=== PATIENT | female | born 1975 | race Caucasian/White ===

== ENCOUNTER → 2020-09-22 10:18 | Outpatient (CLI) | payer OTHER, SELFPAY ==
--- NOTE | ~2020-09-22 | MM_ITS ---
EXAMINATION: MM screening omar BI w padma HISTORY: Screening mammogram TECHNIQUE: Craniocaudal and mediolateral oblique 3-D tomosynthesis images were obtained and synthetic 2-D images were generated. CAD analysis was submitted and interpreted. COMPARISON: 05/30/2019 bilateral digital screening mammogram 10/02/2017 diagnostic right digital mammogram 09/15/2017 bilateral digital screening mammogram BREAST PARENCHYMAL COMPOSITION: There are scattered areas of fibroglandular density. FINDINGS: There is no evidence of suspicious mass, calcification, or architectural distortion to sugg est malignancy in either breast. There has been no suspicious interval change. IMPRESSION: 1. No mammographic evidence of malignancy. 2. Recommend routine screening mammography in one year. BI-RADS Category 1: Negative Reviewed, dictated and finalized at location A. 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
== END ==
PROVIDERS: Visit Provider Obstetrics & Gynecology
DX: Z12.31 Encounter for screening mammogram for malignant neoplasm of breast (principal)
CPT/HCPCS: 77063; 77067

== ENCOUNTER 2021-06-28 13:27 | Outpatient (CLI) | payer OTHER, SELFPAY ==
--- NOTE | ~2021-06-28 | XR_ITS ---
EXAMINATION: XR chest 2V DATE: 06/28/2021 13:48 INDICATION: Chest pain, unspecified. TECHNIQUE: Frontal and lateral views of the chest were obtained. COMPARISON: CT abdomen and pelvis 02/12/2014 FINDINGS: The chest demonstrates clear lungs without pneumonia, pleural effusion, or pneumothorax. Th e heart size is normal. IMPRESSION: 1. No acute cardiopulmonary disease. Reviewed, dictated and finalized at location A. 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
--- NOTE | 2021-06-28 13:47 | ECG_ITS ---
Measurements Intervals [place] Rate: 72 P: 47 CT: 144 QRS: 57 QRSD: 92 T: 11 QT: 390 QTc: 429 Interpretive Statements SINUS RHYTHM WITH SINUS ARRHYTHMIA INCOMPLETE RIGHT BUNDLE BRANCH BLOCK BORDERLINE ECG Electronically Signed On 06-28-2021 14:10:40 SOLE LEVELER MACHINE by Sarwat Lopez D.O.
== END 2021-06-28 13:28 | disposition home or self-care (01) ==
PROVIDERS: PCP Family Medicine; Visit Provider Nurse Practitioner Family
DX: R07.9 Chest pain, unspecified (principal)
CPT/HCPCS: 71046; 93005

== ENCOUNTER 2021-06-29 08:50 | Outpatient (CLI) | payer OTHER, SELFPAY ==
[2021-06-29 09:14] LABS: Hematocrit 40.3 % (37.0-47.0); Hemoglobin 13.2 g/dL (12.0-15.0); Mean Corpuscular HGB Conc 32.8 g/dl (32-36); Mean Corpuscular Volume 91.6 fl (80-100); Mean Platelet Volume 9.7 fl (7.4-10.4); Platelet Count Result 237 k/mm3 (150-375); Red Cell Distribution Width 12.1 % (11.5-14.5); White Blood Count 5.2 K/mm3 (4.5-10.0)
[2021-06-29 09:28] LABS: Anion Gap 4 mmol/L (8-16); Blood Urea Nitrogen 12 mg/dL (7-17); Calcium 8.9 mg/dL (8.4-10.2); Carbon Dioxide 29 mmol/L (22-30); Chloride 107 mmol/L (98-107); Cholesterol 170 mg/dL (0-200); Estimated Glomerular Filt Rate > 60; Glucose 96 mg/dL (65-110); HDL Direct 54 mg/dL; Potassium 4.3 mmol/L (3.4-5.0); Sodium 140 mmol/L (137-145); Triglycerides 89 mg/dL (<150)
[2021-06-29 09:39] LABS: LDL Cholesterol Direct 74 mg/dL
[2021-06-29 09:59] LABS: Thyroid Stimulating Hormone 0.842 uIU/mL (0.465-4.680)
== END 2021-06-29 08:51 | disposition home or self-care (01) ==
PROVIDERS: PCP Family Medicine; Visit Provider Family Medicine
DX: R07.89 Other chest pain (principal); Z13.220 Encounter for screening for lipoid disorders; Z13.1 Encounter for screening for diabetes mellitus; R53.83 Other fatigue; Z13.29 Encounter for screening for other suspected endocrine disorder
CPT/HCPCS: 36415; 80048; 80061; 84443; 85027

== ENCOUNTER 2021-07-24 08:33 | Outpatient (CLI) | payer OTHER, SELFPAY ==
--- NOTE | 2021-07-24 08:55 | ECHO_ITS ---
Patient Info Name: Rosenda Bhat Age: 45 years : 1975 Gender: Female Ht: 64 in Wt: 180 lbs BSA: 1.95 m2 HR: 70 bpm BP: 118 / 87 mmHg Technical Quality: Good Exam Date: 07/24/2021 9:00 AM Exam Location: [facility] Patient Status: Outpatient Admit Date: 07/24/2021 Staff Ordering Physician: Shaan Perez NP Gamma Facilities Operator: Enma Denney RDCS Attending Provider: Shaan Perez NP Referring Physician: Chris FERRERA; Exam Type: CA echo doppler color flow Study Info Indications R94.31 - Abnormal electrocardiogram ECG EKG Complete two-dimensional, color flow and Doppler transthoracic echocardiogram is performed. Summary 1. Complete two-dimensional, color flow and Doppler transthoracic echocardiogram is performed. 2. Left ventricular chamber dimension is normal. 3. Left ventricular systolic function is normal, estimated at 60-65%. 4. The left ventricular diastolic function is normal. 5. E/e' 7 is not elevated. 6. Global longitudinal strain is normal at -18.1%. 7. There is trace mitral valve regurgitation. 8. No pulmonary hypertension, estimated pulmonary arterial systolic pressure is 28 mmHg. Left Ventricle E/e' 7 is not elevated. Global longitudinal strain is normal at -18.1%. Left ventricular chamber dimension is normal. Left ventricular systolic function is normal, estimated at 60-65%. The left ventricular diastolic function is normal. Right Ventricle Right ventricular chamber dimension is normal. Right ventricular systolic function is normal. Left Atria Left atrial chamber dimension is normal. Right Atria Right atrial chamber dimension is normal. Aortic Valve The aortic valve is trileaflet. There is no aortic valve stenosis. There is no aortic valve regurgitation. Pulmonic Valve There is no pulmonic regurgitation. Mitral Valve There is no mitral valve stenosis. There is trace mitral valve regurgitation. Tricuspid Valve There is no tricuspid valve regurgitation. No pulmonary hypertension, estimated pulmonary arterial systolic pressure is 28 mmHg. Pericardium/Pleural There is no pericardial effusion. Inferior Vena Cava Normal inferior vena cava with >50% collapse upon inspiration consistent with normal right atrial pressure, 5 mmHg. Aorta The aortic root size at the sinus of Valsalva is normal. Left Ventricular Outflow Tract Name Value Normal LVOT 2D LVOT Diameter 1.9 cm Pulmonic Valve Name Value Normal RVOT Doppler RVOT Peak Gradient 3 mmHg PV Doppler PV Peak Gradient 5 mmHg Mitral Valve Name Value Normal MV Doppler
== END 2021-07-24 08:34 | disposition home or self-care (01) ==
PROVIDERS: PCP Family Medicine; Visit Provider Nurse Practitioner Family
DX: R94.31 Abnormal electrocardiogram [ECG] [EKG] (principal); R07.89 Other chest pain
CPT/HCPCS: 93306

== ENCOUNTER → 2022-01-03 12:10 | Outpatient (CLI) | payer OTHER, SELFPAY ==
--- NOTE | ~2022-01-03 | MM_ITS ---
EXAMINATION: MM screening omar BI w padma HISTORY: Screening mammogram TECHNIQUE: Craniocaudal and mediolateral oblique 3-D tomosynthesis images were obtained and synthetic 2-D images were generated. CAD analysis was submitted and interpreted. COMPARISON: September 22, 2020, May 24, 2019 bilateral screening mammogram examinations BREAST PARENCHYMAL COMPOSITION: There are scattered areas of fibroglandular density. FINDINGS: There is no evidence of suspicious mass, calcification, or architectural distortion to sugg est malignancy in either breast. There has been no suspicious interval change. IMPRESSION: 1. No mammographic evidence of malignancy. 2. Recommend routine screening mammography in one year. BI-RADS Category 1: Negative Reviewed, dictated and finalized at location A.
== END ==
PROVIDERS: PCP Family Medicine; Visit Provider Obstetrics & Gynecology
DX: Z12.31 Encounter for screening mammogram for malignant neoplasm of breast (principal)
CPT/HCPCS: 77063; 77067

== ENCOUNTER → 2023-01-09 10:16 | Outpatient (CLI) | payer OTHER, SELFPAY ==
--- NOTE | ~2023-01-09 | MM_ITS ---
EXAMINATION: MM screening omar BI w padma HISTORY: Screening mammogram TECHNIQUE: Craniocaudal and mediolateral oblique 3-D tomosynthesis images were obtained and synthetic 2-D images were generated. CAD analysis was submitted and interpreted. COMPARISON: 01/03/2022, 09/22/2020, 05/30/2019 bilateral screening mammogram examinations BREAST PARENCHYMAL COMPOSITION: There are scattered areas of fibroglandular density. FINDINGS: There is no evidence of suspicious mass, calcification, or architectural distortion to sugg est malignancy in either breast. There has been no suspicious interval change. IMPRESSION: 1. No mammographic evidence of malignancy. 2. Recommend routine screening mammography in one year. BI-RADS Category 1: Negative Reviewed, dictated and finalized at location A.
== END ==
PROVIDERS: PCP Family Medicine; Visit Provider Obstetrics & Gynecology
DX: Z12.31 Encounter for screening mammogram for malignant neoplasm of breast (principal)
CPT/HCPCS: 77063; 77067

== ENCOUNTER 2024-06-11 09:55 | Outpatient (CLI) | payer OTHER, SELFPAY ==
--- NOTE | ~2024-06-11 | MM_ITS ---
EXAMINATION: MM screening [facility] BI w padma HISTORY: Screening mammogram TECHNIQUE: Craniocaudal and mediolateral oblique 3-D tomosynthesis images were obtained and synthetic 2-D images were generated. CAD analysis was submitted and interpreted. COMPARISON: 01/09/2023, 01/03/2022, 09/22/2020, 06/03/2019 BREAST PARENCHYMAL COMPOSITION:Not Dense. There are scattered areas of fibroglandular density. FINDINGS: No suspicious mass, calcification, or architectural distortion are identified in either zuleika ast to suggest malignancy. There has been no suspicious interval change. IMPRESSION: No mammographic evidence of malignancy. Recommend routine screening mammography in one year. BI-RADS Category 1: Negative Reviewed, dictated and finalized at location .
== END 2024-06-11 09:56 | disposition home or self-care (01) ==
LOC: MICIMG 09:56
PROVIDERS: PCP Obstetrics & Gynecology; Visit Provider Obstetrics & Gynecology
DX: Z12.31 Encounter for screening mammogram for malignant neoplasm of breast (principal)
CPT/HCPCS: 77063; 77067

== ENCOUNTER 2025-04-22 07:26 | Outpatient (CLI) | payer OTHER, SELFPAY ==
[2025-04-22 08:04] LABS: Hematocrit 41.0 % (37.0-47.0); Hemoglobin 13.1 g/dL (12.0-15.0); Immature Granulocyte Percent A 0.4 % (0-0.5); Lymphocytes Absolute Auto 1.99 K/mm3 (0.9-3.2); Mean Corpuscular HGB Conc 32.0 g/dl (32-36); Mean Corpuscular Hemoglobin 29.1 pg (26-34); Mean Corpuscular Volume 91.1 fl (80-100); Nucleated Red Blood Cells Absolute Auto 0.000 K/mm3 (0.0-0.012); Nucleated Red Blood Cells Perc 0.0 % (0.0-0.2); Platelet Count Result 276 k/mm3 (150-375); Red Blood Count 4.50 M/mm3 (4.2-5.4); White Blood Count 5.4 K/mm3 (4.5-10.0)
[2025-04-22 08:25] LABS: Alanine Aminotransferase 13 U/L (6-35); Albumin Level 4.3 g/dL (3.5-5.1); Alkaline Phosphatase 62 U/L (38-126); Anion Gap 8 mmol/L (4-12); Aspartate Amino Transferase 26 U/L (14-36); Bilirubin,Total 0.7 mg/dL (0.2-1.3); Blood Urea Nitrogen 13 mg/dL (7-17); Calcium 8.7 mg/dL (8.4-10.2); Carbon Dioxide 24 mmol/L (22-30); Chloride 106 mmol/L (98-107); Cholesterol 194 mg/dL (0-200); Estimated Glomerular Filt Rate > 60; Glucose 99 mg/dL (65-110); HDL Direct 63 mg/dL; Potassium 3.8 mmol/L (3.4-5.0); Sodium 138 mmol/L (137-145); Total Protein 7.4 g/dL (6.3-8.2); Triglycerides 90 mg/dL (<150)
[2025-04-22 09:00] LABS: Thyroid Stimulating Hormone 1.980 uIU/mL (0.465-4.680)
[2025-04-22 09:15] LABS: Iron 92 ug/dL (37-170)
[2025-04-22 09:25] LABS: Percent Iron Saturation 28 % (20-50)
[2025-04-22 09:36] LABS: Vitamin B12 689.0 pg/mL (239-931)
== END 2025-04-22 07:27 | disposition home or self-care (01) ==
LOC: ANHLAB 07:28
PROVIDERS: PCP Family Medicine; Visit Provider Nurse Practitioner Family
DX: Z13.1 Encounter for screening for diabetes mellitus (principal); Z13.29 Encounter for screening for other suspected endocrine disorder; Z13.220 Encounter for screening for lipoid disorders; E55.9 Vitamin D deficiency, unspecified
CPT/HCPCS: 36415; 80053; 80061; 82306; 82607; 82746; 83540; 83550; 84443; 85025

== ENCOUNTER 2025-06-16 10:30 | Outpatient (CLI) | payer OTHER, SELFPAY ==
--- NOTE | ~2025-06-16 | MM_ITS ---
EXAMINATION: MM screening omar BI w padma HISTORY: Screening TECHNIQUE: Craniocaudal and mediolateral oblique 3-D tomosynthesis images were obtained and synthetic 2-D images were generated. CAD analysis was submitted and interpreted. COMPARISON: Comparison to multiple prior studies sequentially, with oldest reviewed study dated , 06/03/2019 BREAST PARENCHYMAL COMPOSITION: There are scattered areas of fibroglandular density. FINDINGS: There is no evidence of suspicious mass, calcification, or architectural distortion to suggest malignancy in either breast. IMPRESSION: 1. No mammographic evidence of malignancy. 2. Recommend routine screening mammography in one year. BI-RADS Category 1: Negative Reviewed, dictated and finalized at location B. 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
== END 2025-06-16 10:31 | disposition home or self-care (01) ==
LOC: MICIMG 10:31
PROVIDERS: PCP Family Medicine; Visit Provider Obstetrics & Gynecology
DX: Z12.31 Encounter for screening mammogram for malignant neoplasm of breast (principal)
CPT/HCPCS: 77063; 77067

== ENCOUNTER 2025-06-17 10:35 | Outpatient (CLI) | payer OTHER, SELFPAY ==
--- NOTE | 2025-06-17 10:43 | EST_ITS ---
Patient Info Name: Rosenda Bhat Age: 49 years : 1975 Gender: Female Ht: 64 in Wt: 170 lbs BSA: 1.89 m2 HR: 65 bpm BP: 119 / 71 mmHg Exam Date: 06/17/2025 10:43 AM Patient Status: O Admit Date: 06/17/2025 Exam Type: CA stress test treadmill A treadmill exercise stress test was performed. Staff Referring Physician: Sarwat Lopez DO Attending Provider: Sarwat Lopez DO Exercise Technologist: Renee Malone Exercise Physician: Sarwat Lopez DO Summary 1. 1. Negative Kaleb exercise stress test for ischemic ST changes by ECG criteria. 2. 2. Good functional capacity, achieving 10 METs of workload. 3. 3. Appropriate HR response to exercise. 4. 4. Appropriate HR recovery at 1 minute post exercise. 5. 5. No imaging with stress testing. 6. 6. Patient informed of the above results. Protocol: Kaleb Stress ECG Details Stage: REST Duration (min): 0 min : 59 sec Speed (mph): 0.0 Grade (%): 0 HR (bpm): 66 SBP (mmHg): 119 DBP (mmHg): 71 METS: --- Stage: REST Duration (min): 3 min : 53 sec Speed (mph): 0.0 Grade (%): 0 HR (bpm): 93 SBP (mmHg): 119 DBP (mmHg): 71 METS: --- Stage: STAGE 1 Duration (min): 1 min : 0 sec Speed (mph): 1.7 Grade (%): 10 HR (bpm): 100 SBP (mmHg): 119 DBP (mmHg): 71 METS: --- Stage: STAGE 1 Duration (min): 2 min : 0 sec Speed (mph): 1.7 Grade (%): 10 HR (bpm): 100 SBP (mmHg): 119 DBP (mmHg): 71 METS: --- Stage: STAGE 1 Duration (min): 3 min : 0 sec Speed (mph): 1.7 Grade (%): 10 HR (bpm): 107 SBP (mmHg): 152 DBP (mmHg): 83 METS: --- Stage: STAGE 2 Duration (min): 1 min : 0 sec Speed (mph): 2.5 Grade (%): 12 HR (bpm): 112 SBP (mmHg): 152 DBP (mmHg): 83 METS: --- Stage: STAGE 2 Duration (min): 2 min : 0 sec Speed (mph): 2.5 Grade (%): 12 HR (bpm): 122 SBP (mmHg): 152 DBP (mmHg): 76 METS: --- Stage: STAGE 2 Duration (min): 3 min : 0 sec Speed (mph): 2.5 Grade (%): 12 HR (bpm): 129 SBP (mmHg): 152 DBP (mmHg): 76 METS: --- Stage: STAGE 3 Duration (min): 1 min : 0 sec Speed (mph): 3.4 Grade (%): 14 HR (bpm): 137 SBP (mmHg): 187 DBP (mmHg): 76 METS: --- Stage: STAGE 3 Duration (min): 2 min : 0 sec Speed (mph): 3.4 Grade (%): 14 HR (bpm): 145 SBP (mmHg): 187 DBP (mmHg): 76 METS: --- Stage: STAGE 3 Duration (min): 3 min : 0 sec Speed (mph): 3.4 Grade (%): 14 HR (bpm): 145 SBP (mmHg): 202 DBP (mmHg): 76 METS: --- Stage: RECOVERY Duration (min): 0 min : 59 sec Speed (mph): 0.0 Grade (%): 0 HR (bpm): 120 SBP (mmHg): 202 DBP (mmHg): 76 METS: --- Stage: RECOVERY Duration (min): 1 min : 59 sec Speed (mph): 0.0 Grade (%): 0 HR (bpm): 98 SBP (mmHg): 202 DBP (mmHg): 76 METS: --- Stage: RECOVERY Duration (min): 2 min : 59 sec Speed (mph): 0.0 Grade (%): 0 HR (bpm): 100 SBP (mmHg): 132 DBP (mmHg): 73 METS: --- Stage: RECOVERY Duration (min): 3 min : 10 sec Speed (mph): 0.0 Grade (%): 0 HR (bpm): 96 SBP (mmHg): 132 DBP (mmHg): 73 METS: --- Rest HR: 93 bpm Peak HR: 148 bpm Rest Sys BP: 119 mmHg Peak Sys BP: 202 mmHg Max Pred HR: 172 bpm % Max Pred HR: 86 % Target HR: 146 bpm Max RPP: 29,896 bpm*mmHg Valderrama Score: 1 Termination Reason: Reached target heart rate or workload Cardiac Symptoms: Shortness of breath Max ST Seg Deviation: -1.70 mm Total Time: 9 min : 0 sec Rest Medeiros BP: 71 mmHg Peak Medeiros BP: 76 mmHg Angina Score: None Total METS: 10.3 Resting ECG Sinus rhythm. Stress ECG No ST changes. Arrhythmias None. Report Signatures
--- OUTSIDE RECORDS SUMMARY | 2025-06-17 11:15 | XMS_ITS | Clinical Summary ---
Author Organization [facility] Address [address] 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 This disclosure is being madepursuant to the Care Everywhere program and may not contain all information available regarding this patient. Last updated 18.[facility] Allergies No known active allergies Medications * Be aware that medications may not be up to date on this document. Alwaysverify current medications with the patient. triamterene-hydr ochlorothiazide (MAXZIDE) 75-50 MG tablet Take 1 Tab by mouth daily. 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 Gender Identity Not on file Sexual Orientation Not on file Plan of Treatment Health Maintenance Due Date Last Done Comments COLOGUARD (AGES 45-75) - COL ON CA SCREENING 1975 COLON MONITORING 1975 COLONOSCOPY - COLON CA SCREENING 1975 CT COLONOGRAPHY - COLON CA SCREENING 1975 Colorectal Cancer Screening 1975 FIT - COLON CA SCREENING 1975 FLEX SIG - COLON CA SCREENING 1975 LIPID TESTING 1975 MAMMOGRAM 1975 HIV SCREENING 1991 HEPATITIS C SCREENING 09/17/1994 DTAP/TDAP/TD VACCINES (1 - Tdap) 1995 HEPATITIS B VACCINE (1 of 3 - 19+ 3-dose series) 1995 DEPRESSION SCREENING 08/11/2024 COVID-19 VACCINE (4 - 2024-2 6 season) 2025 05/17/2021, 08/25/2020, 08/02/2020 INFLUENZA VACCINE (#1) 2025 ZOSTER VACCINE (1 of 2) 2026 HIB VACCINE Aged Out No longer eligi ble based on patient's age to complete this topic HPV VACCINE Aged Out No longer eligi ble based on patient's age to complete this topic MENINGOCOCCAL (Group B) VACCINE SHARED DECISION-MAKING Aged Out No longer eligible based on patient's age to complete this topic MENINGOCOCCAL GROUPS A/C/Y/W VACCINE Aged Out No longer eligible b ased on patient's age to complete this topic PNEUMOCOCCAL VACCINE Aged Out No long er eligible based on patient's age to complete this topic Insurance [employer] WC [employer]
--- OUTSIDE RECORDS SUMMARY | 2025-06-17 11:15 | XMS_ITS | Clinical Summary ---
Author Organization [facility] at the [facility] Address [address] [place] [address] Care Team Providers Care Still Photographer Name Role Phone Peter Ashton MD Primary Care Provider [phone] Allergies Active Allergy Reactions Criticality Noted Date Comments Lehtxxvk-Iwjwztrlon-Ikxbhxsqt Rash Reaction: RASH Medications famotidine (PEPCID) 40 mg tabletIndication s:Gastroesophage al reflux disease without esophagitis Take 1 tablet (40 mg total) by mouth nightly as needed for heartburn 90 tablet 1 2 Active bisacodyl EC (DULCOLAX EC) 5 mg EC tabletIndication s:constipation Take as directed by office for colonoscopy prep. 4 tablet 5 Active ondansetron (ZOFRAN) 4 mg tabletIndication s:Nausea and vomiting, unspecified vomiting type,Hx of colonic polyps Take 1 tablet (4 mg) total 30 minutes before starting colonoscopy prep. Use the 2nd tablet as needed for nausea and vomiting. 2 tablet 5 Active sodium, potassium & mag sulfates (SUPREP BOWEL KIT) 17.5-3.13-1.6 gram recon solnIndications: Bowel Evacuation Mix 1 bottle with water and take at 4:00 PM the day prior to the procedure. Drink 2nd bottle 6 hours prior to arrival. 360 mL 5 Active Active Problems Problem Noted Date Diagnosed Date Hx of colonic polyps 04/15/2025 History of colon polyps 05/09/2022 Assessment & Plan (11/07/2022 2:09 PM CDT): Colonoscopy March 2022 with 1 cm sessile serrated adenoma -repeat colonoscopy due March 2025 Assessment & Plan (05/09/2022 9:23 AM CDT): Colonoscopy March 2022 with 1 cm sessile serrated adenoma -repeat colonoscopy due March 2025 Fatty liver 05/09/2022 Assessment & Plan (11/07/2022 2:20 PM CDT): Ultrasound with fatty liver and top size normal spleen. Recent LFTs normal. -recommend PCP check liver function tests every 6-12 months -The natural history of fatty liver disease has been discussed in detail with the patient. The patient understands the potential risks for cirrhosis in the future. RECOMMENDATIONS given include: OROSCO counceling: Discussed risk factors: Increased cholesterol and triglycerides, obesity, PCOS, Type 2 diabetes, hypothyroidism, sleep apnea, and gastric bypass surgery. Encourage healthy diet low in saturated fat and carbs. Establish an excercise routine. Assessment & Plan (05/09/2022 9:38 AM CDT): Ultrasound with fatty liver and top size normal spleen. Recent LFTs normal. -The natural history of fatty liver disease has been discussed in detail with the patient. The patient understands the potential risks for cirrhosis in the future. RECOMMENDATIONS given include: OROSCO counceling: Discussed risk factors: Increased cholesterol and triglycerides, obesity, PCOS, Type 2 diabetes, hypothyroidism, sleep apnea, and gastric bypass surgery. Encourage healthy diet low in saturated fat and carbs. Establish an excercise routine. Gastroesophageal reflux disease without esophagi tis 03/28/2022 Overview (03/28/2022): Added automatically from request for surgery [id number] Assessment & Plan (11/07/2022 2:20 PM CDT): Chronic GERD for the past 10 years, however symptoms worsening. Started famotidine with resolution of symptoms. EGD March 2022 with irregular Z-line and gastritis, pathology unremarkable. -continue famotidine p.r.n. -RECOMMENDATIONS given include: anti-reflux maneuvers, Avoid acidic foods like oranges and tomatoes., avoidance of spicy foods, avoid eating 3-4 hours before bed, elevation of the head of the bed, and weight loss Assessment & Plan (05/09/2022 9:37 AM CDT): Chronic GERD for the past 10 years, however symptoms worsening. Patient taking Nexium daily, which works for the majority of the day however in the evening she starts having reflux symptoms especially after meals. Started famotidine with resolution of symptoms. -discussed long-term side effects of PPI and goal to stop Nexium and use famotidine b.i.d. p.r.n. -RECOMMENDATIONS given include: anti-reflux maneuvers, Avoid acidic foods like oranges and tomatoes., avoidance of spicy foods, avoid eating 3-4 hours before bed, elevation of the head of the bed, and weight loss Assessment & Plan (03/28/2022 10:30 AM CDT): Chronic GERD for the past 10 years, however symptoms worsening. Patient taking Nexium daily, which works for the majority of the day however in the evening she starts having reflux symptoms especially after meals. -continue Nexium 20 mg p.o. daily -recommend starting famotidine 40 mg p.o. q.h.s. p.r.n. -RECOMMENDATIONS given include: anti-reflux maneuvers, Avoid acidic foods like oranges and tomatoes., avoidance of spicy foods, avoid eating 3-4 hours before bed, elevation of the head of the bed, and weight loss -schedule EGD to rule out Kirkland's -The risks (risks of bleeding, infection, perforation requiring surgery, missed polyps/cancer, dental injury, aspiration pneumonia, anesthesia complications such as drug reaction and cardiopulmonary complications including rare chance of ), benefits, and alternatives of the planned procedure were explained to the patient who understands and consents to having procedure done. Abdominal pain 03/28/2022 Overview (03/28/2022): Added automatically from request for surgery [id number] Assessment & Plan (11/07/2022 2:13 PM CDT): Two months of epigastric abdominal pain associated with diarrhea, 1-4 bowel movements per day. EGD as above. Abdominal pain improved since last visit. Labs unremarkable. -avoid NSAIDs -continue famotidine p.r.n. Assessment & Plan (05/09/2022 9:36 AM CDT): Two months of epigastric abdominal pain associated with diarrhea, 1-4 bowel movements per day. EGD as above. Abdominal pain improved since last visit. Labs unremarkable. -CT enterography as above -avoid NSAIDs -continue famotidine p.r.n. Assessment & Plan (03/28/2022 10:31 AM CDT): Two months of epigastric abdominal pain associated with diarrhea, 1-4 bowel movements per day. Differential includes peptic ulcer disease versus GERD versus cholelithiasis versus less likely pancreatitis. -we will schedule EGD -avoid NSAIDs Diarrhea 03/28/2022 Overview (03/28/2022): Added automatically from request for surgery [id number] Assessment & Plan (11/07/2022 2:19 PM CDT): Chronic diarrhea with loose stools, 1-4 bowel movements per day. Stool studies negative. Colonoscopy with biopsies negative for microscopic colitis. CT enterography with normal small bowel, mild prolapse of left greater than right ureterovesical junctions. Suspect secondary to IBS. -low FODMAP diet discussed -avoid food triggers (lactose) -advised patient to follow up with PCP regarding prolapse of the ureterovesical junctions (patient has a history of ureterocele repair). Assessment & Plan (05/09/2022 9:35 AM CDT): Chronic diarrhea with loose stools, 1-4 bowel movements per day. Stool studies negative. Colonoscopy with biopsies negative for microscopic colitis. Differential includes IBS versus small bowel Crohn's. -we will order CT enterography for further evaluation -avoid food triggers Assessment & Plan (03/28/2022 10:31 AM CDT): Chronic diarrhea with loose stools, 1-4 bowel movements per day. Differential includes infectious diarrhea versus celiac disease versus IBS versus IBD. -we will order stool studies to rule out infectious etiologies -colonoscopy as above Screening for colon cancer 03/28/2022 Overview (03/28/2022): Added automatically from request for surgery [id number] Assessment & Plan (03/28/2022 10:32 AM CDT): No prior colonoscopy. No family history of colon cancer -schedule colonoscopy -The risks (risks of bleeding, infection, perforation requiring surgery, missed polyps/cancer, dental injury, aspiration pneumonia, anesthesia complications such as drug reaction and cardiopulmonary complications including rare chance of ), benefits, and alternatives of the planned procedure were explained to the patient who understands and consents to having procedure done. Encounters Date Type Department Care Team Description 04/18/2025 Orders Only [facility] at [address] [address] Marv Gtz MD Screening for colon cancer (Primary Dx) 04/15/2025 Orders Only [facility] at [address] [address] Marv Gtz MD Screening for colon cancer (Primary Dx) 04/15/2025 Orders Only [facility] at [address] [address] Marv Gtz MD Nausea and vomiting, unspecified vomiting type (Primary Dx); Hx of colonic polyps 04/15/2025 Telephone [facility] at [address] [address] Marv Gtz MD from Last 3 Months Surgical History Surgery Date Site/Laterality Comments URETEROCELE INCISION N/A Medical History Medical History Date Comments GERD (gastroesophageal reflux disease) Kidney stone Chronic diarrhea Miscarriage Social History Tobacco Use Types Packs/Day Years Used Date Smoking Tobacco: Never Smokeless Tobacco: Never AUDIT-C Answer Date Recorded Q1: How often do you have a drink containing alc ohol? Monthly or less 04/05/2022 Q2: How many drinks containi ng alcohol do you have on a typical day when you are drinking? 3 or 4 04/05/2022 Q3: How often do you have si x or more drinks on one occasion? 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 Gender Identity Not on file Sexual Orientation Not on file Last Filed Vital Signs Vital Sign Reading Time Taken Comments Blood Pressure 114/75 11/07/2022 2:10 PM CDT Pulse 71 11/07/2022 2:10 PM CDT Temperature 36.4 C (97.5 F) 04/05/2022 1:42 PM CDT Respiratory Rate 20 04/05/2022 2:20 PM CDT Oxygen Saturation 98% 11/07/2022 2:10 PM CDT Inhaled Oxygen Concentration - - Weight 79.8 kg (176 lb) 11/07/2022 2:10 PM CDT Height 163.8 cm (5' 4.49) 11/07/2022 2:10 PM CD T Body Mass Index 29.75 11/07/2022 2:10 PM CDT Plan of Treatment Upcoming Encounters Date Type Department Care Team (Late st Contact Info) Description 06/30/2025 12:00 PM DELIVERY ROOM SUPERVISOR Hospital Encounter [facility] [address] [place] [id number] Marv Gtz MD [facility] [address] [place] [id number] 06/30/2025 12:00 PM DELIVERY ROOM SUPERVISOR - 06/30/2025 12:30 PM DELIVERY ROOM SUPERVISOR Surgery [facility] [address] [place] [address] Marv Gtz MD [address] [facility] [address] [place] [address] COLONOSCOPY Scheduled Procedures Name Priority Associated Diagnoses Date/Ti me COLONOSCOPY Hx of colonic polyps 06/30/2025 12:00 PM DELIVERY ROOM SUPERVISOR Health Maintenance Due Date Last Done Comments Breast Cancer Screening-Mammogram 1976 Cervical Cancer Screening 1976 Depression Screening 1976 Hepatitis C Screening 1976 Hepatitis B Screening 1994 Regular Well Visit/Exam 18-64 1994 Pneumococcal vaccine <65 (1 of 2 - PCV) 1995 DTaP/Tdap/Td Vaccine (2 - Td or Tdap) 11/11/202309/2013 Colon Cancer Screening-Colonoscopy 04/05/20252021, 04/05/2022 Covid-19 Vaccine ( - season) 2025 05/17/2021, 08/25/2020, 08/02/2020 Influenza Vaccine (#1) 2025 Procedures Procedure Name Priority Date/Time Associated Diagnosis Comments COLONOSCOPY Routine 04/05/2022 from Last 3 Months or Most Recently Relevant to Health Maintenance Results * COLONOSCOPY (04/05/2022) Scribed Colonoscopy Normal Comment:op note in chart Historical Provider MD HEALTH MAINTENANCE Final Result from Last 3 Months or Most Recently Relevant to Health Maintenance Insurance [facility] CMR Care Teams Still Photographer Relationship Specialty Start Date End Date Peter Ashton MD PCP - General Family Medicine 03/05/22
--- OUTSIDE RECORDS SUMMARY | 2025-06-17 11:15 | XMS_ITS | Clinical Summary ---
Author Organization [facility] Address [address] [place] [id number] Care Team Providers Care Kennel Technician Name Role Phone Peter Ashton MD Primary Care Provider [phone] Social History Tobacco Use Types Packs/Day Years Used Date Smoking Tobacco: Never Assessed Comments Unknown Sex and Gender Information Value Date Recorded Sex Assigned at Not on file Legal Sex Female 1:28 PM CDT Gender Identity Not on file Sexual Orientation Not on file Plan of Treatment Health Maintenance Due Date Last Done Comments Cervical Cancer Screening Pap Smear (Age 30 to 64) Every 3 Years 1976 Colorectal Cancer Screening Colonoscopy (10 Years) 1976 Annual Physical 1979 Hepatitis C 1994 Hepatitis B Vaccines (1 of 3 - 19+ 3-dose series) 1995 Cervical Cancer Screening Pap with HPV Testing (Age 30 to 64) Every 5 Years 2006 Cervical Cancer Screening with HPV 2006 Mammogram Screening 2016 DTaP, Tdap and Td Vaccines (2 - Td or Tdap) 11/11/2023 11/10/2013 COVID-19 Vaccine ( season) 2025 04/25/2022, 05/17/2021, 08/25/2020, Additional history exists Influenza Adult (#1) 2025 Hepatitis A Vaccines Aged Out No long er eligible based on patient's age to complete this topic Meningococcal B Vaccine Aged Out No l onger eligible based on patient's age to complete this topic Meningococcal Vaccine Aged Out No lilia darlin eligible based on patient's age to complete this topic Pneumococcal Vaccine: Pediatrics (0 to 5 Years) and At-Risk Patients (6 to 49 Years) Aged Out No longer eligible based on patient's age to complete this topic RSV Immunizations Under 20 Months Aged Out No longer eligible based on patient's age to complete this topic Care Teams Kennel Technician Relationship Specialty Start Date End Date Peter Ashton MD [address] [place] [address] PCP - General FAMILY PRACTICE 06/13/23
== END 2025-06-17 10:36 | disposition home or self-care (01) ==
PROVIDERS: PCP Family Medicine; Visit Provider Internal Medicine Cardiovascular Disease
DX: R07.9 Chest pain, unspecified (principal)
CPT/HCPCS: 93017